=== PATIENT | male | born 1970 | race Hispanic/Latino ===

== ENCOUNTER 2020-07-09 12:48 | Inpatient (IN) | payer BC, OTHER ==
[~2020-07-09] VITALS: Ht 182.9 cm; Wt 92.6 kg
[2020-07-09 13:16] LABS: BASOPHILS % (AUTO) 0.2 % (0.0-5.0); EOSINOPHILS % (AUTO) 0.5 % (0.0-8.0); HEMATOCRIT 38.5 % (42-54); LYMPHOCYTES % (AUTO) 7.9 % (21.0-51.0); MEAN CORPUSCULAR HEMOGLOBIN 30.1 pg (27.0-33.0); MEAN CORPUSCULAR HGB CONC 35.1 g/dL (32.0-36.0); MEAN CORPUSCULAR VOLUME 85.7 fL (79-99); NEUTROPHILS % (AUTO) 85.1 % (40.0-77.0); PLATELET COUNT (AUTO) 161 K/uL (130-400); RED BLOOD CELL COUNT(AUTO) 4.49 MIL/uL (4.50-6.20); RED CELL DISTRIBUTION WIDTH 12.9 % (11.0-15.5); WHITE BLOOD COUNT (AUTO) 13.2 K/uL (4.8-10.8)
[2020-07-09 13:20] LABS: CREATININE 1.5 mg/dL (0.5-1.5); POTASSIUM 3.4 mmol/L (3.5-5.1)
[2020-07-09 13:26] LABS: ALBUMIN 3.7 g/dL (3.5-5.0); BILIRUBIN,TOTAL 0.9 mg/dL (0.2-1.0)
[2020-07-09] MEDS ORDERED: ONDANSETRON HCL 4 MG/2 ML VIAL ONE (14:24)
[2020-07-09] MEDS ORDERED: MORPHINE SULFATE 4 MG/1ML SYG ONE (14:24)
[2020-07-09] MEDS ORDERED: ZOSYN 3.375GM+NS 50ML 50 ML IV ONE (15:36)
[2020-07-09] MEDS ORDERED: VANCOMYCIN 1GM+NS 250ML 250 ML IV ONE (16:02)
[2020-07-09] MEDS: SODIUM CHLORIDE 0.9% 1000ML 1,000 ML IV SCH (16:30)
[2020-07-09] MEDS ORDERED: ONDANSETRON HCL 4 MG/2 ML VIAL IV PRN (16:30)
[2020-07-09] MEDS ORDERED: VANCOMYCIN PROTOCOL PER PHARMACY IV PRN (16:30)
[2020-07-09] MEDS ORDERED: HYDROMORPHONE HCL 0.5 MG/0.5 ML ML IVP PRN (16:30)
[2020-07-09] MEDS ORDERED: ACETAMINOPHEN 325 MG TAB PO PRN ×2 (16:30)
[2020-07-09] MEDS ORDERED: HYDROMORPHONE 1 MG/1 ML AMP IVP PRN (16:30)
[2020-07-09] MEDS ORDERED: VANCOMYCIN 1GM+NS 250ML 250 ML IV SCH (16:30)
[2020-07-09] MEDS ORDERED: SODIUM CHLORIDE 0.9% 1000ML 3,000 ML IV ONE (16:54)
[2020-07-09] MEDS ORDERED: COMPOUND IV REFRIGERATED 1 EACH IVSOLN MISC PRN (17:00)
[2020-07-09 17:11] LABS: HEMOGLOBIN A1C 5.2 % (4.0-6.0)
[2020-07-09] MEDS ORDERED: SODIUM CHLORIDE 0.9% 1000ML 1,000 ML IV ONE (20:18)
[2020-07-09] MEDS ORDERED: FAMOTIDINE/PF 20 MG/2 ML VIAL IV ONE (20:18)
[2020-07-09] MEDS ORDERED: CEFEPIME HCL 2 GM VIAL ONE (20:18)
[2020-07-09] MEDS ORDERED: HYDROMORPHONE 1 MG/1 ML AMP ONE (20:31)
[2020-07-09] MEDS: FAMOTIDINE/PF 20 MG/2 ML VIAL IV SCH (21:00)
[2020-07-09] MEDS ORDERED: ACETAMINOPHEN 325 MG TAB ONE (21:50)
[2020-07-09] MEDS: CEFEPIME HCL 2 GM VIAL IVP SCH (21:51)
[2020-07-09] MEDS ORDERED: CLIN300C10 PO (22:16)
[2020-07-09 22:30] VITALS: BP 121/70
[2020-07-09] MEDS: VANCOMYCIN 1.5 GM in SODIUM CHLORIDE 0.9% 250 ML IV SCH (23:27)
[2020-07-10] VITALS (17 sets, daily range): BP systolic 90–113; BP diastolic 52–73
[2020-07-10] MEDS: SODIUM CHLORIDE 0.9% 1000ML 1,000 ML IV SCH ×3 (01:53→20:23)
[2020-07-10 08:10] LABS: BASOPHILS % (AUTO) 0.4 % (0.0-5.0); EOSINOPHILS % (AUTO) 1.5 % (0.0-8.0); HEMATOCRIT 32.3 % (42-54); LYMPHOCYTES % (AUTO) 11.1 % (21.0-51.0); MEAN CORPUSCULAR HEMOGLOBIN 29.9 pg (27.0-33.0); MEAN CORPUSCULAR HGB CONC 34.7 g/dL (32.0-36.0); MEAN CORPUSCULAR VOLUME 86.4 fL (79-99); MONOCYTES % (AUTO) 9.8 % (3.0-13.0); NEUTROPHILS % (AUTO) 76.8 % (40.0-77.0); PLATELET COUNT (AUTO) 128 K/uL (130-400); RED BLOOD CELL COUNT(AUTO) 3.74 MIL/uL (4.50-6.20); RED CELL DISTRIBUTION WIDTH 12.8 % (11.0-15.5); WHITE BLOOD COUNT (AUTO) 9.8 K/uL (4.8-10.8)
[2020-07-10 08:20] LABS: CREATININE 1.3 mg/dL (0.5-1.5); POTASSIUM 3.6 mmol/L (3.5-5.1)
[2020-07-10] MEDS ORDERED: FLUCONAZOLE 200 MG/NS 100 ML 100 ML IV SCH (09:00)
[2020-07-10] MEDS: CEFEPIME HCL 2 GM VIAL IVP SCH ×3 (09:13→23:55)
[2020-07-10] MEDS: FAMOTIDINE/PF 20 MG/2 ML VIAL IV SCH ×2 (09:13→20:21)
[2020-07-10] MEDS: VANCOMYCIN 1.5 GM in SODIUM CHLORIDE 0.9% 250 ML IV SCH ×2 (10:10→20:22)
[2020-07-10] MEDS ORDERED: KETAMINE 50MG/ML SYRINGE 50 MG/ML DISP.SYRIN IV ONE (10:56)
[2020-07-10] MEDS ORDERED: OXYTOCIN 10 USP UNITS/ML ONE (10:57)
[2020-07-10] MEDS ORDERED: MIDAZOLAM HCL 1 MG/ML 2ML VIAL ONE (10:58)
[2020-07-10] MEDS ORDERED: PROPOFOL 10 MG/ML 20ML VIAL IV ONE ×2 (10:58→11:18)
[2020-07-10] MEDS ORDERED: GLYCOPYRROLATE 1 MG/5 ML SYRINGE ONE (10:58)
[2020-07-10] MEDS ORDERED: ONDANSETRON HCL 4 MG/2 ML VIAL ONE (10:59)
[2020-07-10] MEDS ORDERED: FENTANYL CITRATE PF 50 MCG/1 ML 2ML VIAL ONE (11:00)
[2020-07-10] MEDS ORDERED: BUPIVACAINE/PF 0.25% 30ML VIAL IJ ONE (11:07)
[2020-07-10] MEDS ORDERED: LIDOCAINE HCL 1% 20 ML VIAL ONE (11:07)
[2020-07-11 00:12] VITALS: BP 116/78
[2020-07-11 03:52] VITALS: BP 116/72
[2020-07-11 06:34] LABS: BASOPHILS % (AUTO) 0.5 % (0.0-5.0); EOSINOPHILS % (AUTO) 2.2 % (0.0-8.0); HEMATOCRIT 33.8 % (42-54); LYMPHOCYTES % (AUTO) 15.5 % (21.0-51.0); MEAN CORPUSCULAR HGB CONC 33.4 g/dL (32.0-36.0); MEAN CORPUSCULAR VOLUME 86.7 fL (79-99); NEUTROPHILS % (AUTO) 72.4 % (40.0-77.0); PLATELET COUNT (AUTO) 159 K/uL (130-400); RED CELL DISTRIBUTION WIDTH 12.7 % (11.0-15.5); WHITE BLOOD COUNT (AUTO) 7.4 K/uL (4.8-10.8)
[2020-07-11 06:43] LABS: CREATININE 1.2 mg/dL (0.5-1.5); POTASSIUM 3.9 mmol/L (3.5-5.1)
[2020-07-11 08:00] VITALS: BP 114/73
[2020-07-11] MEDS: SODIUM CHLORIDE 0.9% 1000ML 1,000 ML IV SCH ×2 (08:30→17:49)
[2020-07-11] MEDS: FAMOTIDINE/PF 20 MG/2 ML VIAL IV SCH ×2 (10:04→20:22)
[2020-07-11] MEDS: CEFEPIME HCL 2 GM VIAL IVP SCH ×2 (10:04→17:49)
[2020-07-11] MEDS: VANCOMYCIN 1.5 GM in SODIUM CHLORIDE 0.9% 250 ML IV SCH ×2 (10:07→20:23)
[2020-07-11 12:02] VITALS: BP 115/73
[2020-07-11 16:00] VITALS: BP 119/79
[2020-07-11 19:42] VITALS: BP 120/84
[2020-07-12 00:23] VITALS: BP 117/75
[2020-07-12] MEDS: CEFEPIME HCL 2 GM VIAL IVP SCH ×3 (00:24→17:17)
[2020-07-12 04:13] VITALS: BP 115/80
[2020-07-12] MEDS: SODIUM CHLORIDE 0.9% 1000ML 1,000 ML IV SCH ×2 (04:53→17:17)
[2020-07-12 05:20] LABS: HEMATOCRIT 35.9 % (42-54); MEAN CORPUSCULAR VOLUME 85.3 fL (79-99); RED BLOOD CELL COUNT(AUTO) 4.21 MIL/uL (4.50-6.20); RED CELL DISTRIBUTION WIDTH 12.2 % (11.0-15.5); WHITE BLOOD COUNT (AUTO) 5.9 K/uL (4.8-10.8)
[2020-07-12 05:46] LABS: ALBUMIN 2.7 g/dL (3.5-5.0); BILIRUBIN,TOTAL 0.4 mg/dL (0.2-1.0); CREATININE 1.2 mg/dL (0.5-1.5); POTASSIUM 3.4 mmol/L (3.5-5.1); TOTAL PROTEIN, SERUM 6.6 g/dL (6.0-8.3)
[2020-07-12 06:20] LABS: CRP QUANTITATIVE 74.8 mg/L (0.00-9.0)
[2020-07-12 08:15] VITALS: BP 124/73
[2020-07-12] MEDS ORDERED: POTASSIUM CHLORIDE 20 MEQ ERTAB PO PRN (09:15)
[2020-07-12] MEDS ORDERED: POTASSIUM CHLORIDE 20MEQ/100ML 100 ML IV PRN (09:15)
[2020-07-12] MEDS ORDERED: LIDOCAINE HCL-MPF 1% 2ML VIAL IV PRN (09:15)
[2020-07-12] MEDS: FAMOTIDINE/PF 20 MG/2 ML VIAL IV SCH ×2 (09:49→20:48)
[2020-07-12] MEDS: VANCOMYCIN 1.5 GM in SODIUM CHLORIDE 0.9% 250 ML IV SCH ×2 (09:51→20:48)
[2020-07-12 12:49] VITALS: BP 128/81
[2020-07-12] MEDS: POTASSIUM CHLORIDE 10% ELIXIR 20 MEQ/15 ML UDCUP PO PRN ×2 (17:24→19:30)
[2020-07-12 17:36] VITALS: BP 110/72
[2020-07-12 19:17] LABS: APPEARANCE,URINE Clear (CLEAR); BILIRUBIN,URINE Negative (NEGATIVE); COLOR,URINE Yellow (YELLOW); GLUCOSE, URINE (UA) Negative (NEGATIVE); KETONES,URINE Negative (NEGATIVE); LEUKOCYTE ESTERASE ,URINE Negative (NEGATIVE); NITRATE,URINE Negative (NEGATIVE); OCCULT BLOOD,URINE Negative (NEGATIVE); PH,URINE 5.5 (5.0-8.0); PROTEIN,URINE Negative (NEGATIVE); UROBILINOGEN,URINE 0.2 mg/dL (0.2-1.0)
[2020-07-12 20:00] VITALS: BP 121/76
[2020-07-13] VITALS: BP 102/65
[2020-07-13] MEDS: SODIUM CHLORIDE 0.9% 1000ML 1,000 ML IV SCH (00:30)
[2020-07-13] MEDS: CEFEPIME HCL 2 GM VIAL IVP SCH ×3 (01:17→17:39)
[2020-07-13 04:00] VITALS: BP 107/77
[2020-07-13 08:34] VITALS: BP 112/73
[2020-07-13] MEDS: FAMOTIDINE/PF 20 MG/2 ML VIAL IV SCH ×2 (09:39→09:46)
[2020-07-13] MEDS: VANCOMYCIN 1.5 GM in SODIUM CHLORIDE 0.9% 250 ML IV SCH (09:41)
[2020-07-13 11:00] VITALS: BP 120/66
[2020-07-13] MEDS ORDERED: CEFU500T67 PO (13:27)
[2020-07-13 16:28] VITALS: BP 125/82
== END 2020-07-13 18:15 | disposition home or self-care (01) | DRG 854 ==
LOC: EDH 12:48 → EDHIP 16:30 → 3AH 21:28
PROVIDERS: ADMIT Internal Medicine; ATTEND Internal Medicine
PROC: 0D9P0ZZ Drainage of Rectum, Open Approach (ICD-10-PCS; principal; 2020-07-10 11:19)
DX: A41.9 Sepsis, unspecified organism (principal); K61.1 Rectal abscess; E87.6 Hypokalemia; R73.9 Hyperglycemia, unspecified
CPT/HCPCS: 36415; 72192; 80048; 80053; 80202; 81003; 83036; 83605; 84132; 84145; 84484; 85025; 85027; 85651; 86140; 87040; 87070; 87076; 87205; G0378; J0692; J1170; J1450; J2250; J2270; J2405; J2543; J2590; J2704; J3010; J3370; J3490; J7030; J7050; J7120